=== PATIENT | male | born 1980 | race Caucasian/White ===

== ENCOUNTER 2019-04-15 09:37 | Emergency (ER) | payer MEDICAID ==
[~2019-04-15] VITALS: Ht 167.6 cm; Wt 68.5 kg
[2019-04-15 09:47] VITALS: BP 125/92; Ht 167.6 cm; Wt 68.5 kg
== END 2019-04-15 15:32 | disposition home or self-care (01) ==
LOC: ED 09:37
DX: M54.42 Lumbago with sciatica, left side (principal)
CPT/HCPCS: J1885